=== PATIENT | male | born 1970 | race Caucasian/White ===

== ENCOUNTER → 2016-07-21 | Outpatient (CLI) | payer BC, OTHER ==
[2016-07-21 15:33] LABS: ANION GAP 8 MEQ/L (8-16); BLOOD UREA NITROGEN 22 MG/DL (7-18); CALCIUM LEVEL 9.1 MG/DL (8.5-10.1); CARBON DIOXIDE LEVEL 29 MEQ/L (21-32); CHLORIDE LEVEL 103 MEQ/L (98-107); CREATININE FOR GFR 1.12 MG/DL (0.70-1.30); GLOMERULAR FILTRATION RATE > 60.0 (>60); GLUCOSE, FASTING 139 MG/DL (70-105); POTASSIUM SERUM 4.3 MEQ/L (3.5-5.1); SODIUM LEVEL 140 MEQ/L (136-145)
== END ==
LOC: M SMT 12:04
PROVIDERS: ATTEND Physician Assistant
DX: Z00.00 Encounter for general adult medical examination without abnormal findings (principal); E78.2 Mixed hyperlipidemia; Z80.42 Family history of malignant neoplasm of prostate
CPT/HCPCS: 36415; 80048; G0103

== ENCOUNTER → 2017-02-03 | Outpatient (CLI) | payer OTHER ==
[2017-02-05 14:15] LABS: PSA TOTAL 2.2 ng/mL (0.0-4.0)
== END ==
LOC: M SMT 14:16
PROVIDERS: ATTEND Urology
DX: R97.20 Elevated prostate specific antigen [PSA] (principal)

== ENCOUNTER → 2017-05-26 | Outpatient (CLI) | payer MEDICAID | LOC: M OUTALCOH 07:47 | DX: F10.20 Alcohol dependence, uncomplicated (principal) ==

== ENCOUNTER 2017-06-07 13:29 | Outpatient (RCR) | payer MEDICAID | END 2017-06-30 | LOC: M OUTALCOH 06-15 16:00 | DX: F10.20 Alcohol dependence, uncomplicated (principal) ==

== ENCOUNTER 2017-07-06 09:00 | Outpatient (RCR) | payer MEDICAID | END 2017-07-31 | LOC: M OUTALCOH 07-13 08:00 | DX: F10.20 Alcohol dependence, uncomplicated (principal) ==

== ENCOUNTER → 2017-08-17 | Outpatient (CLI) | payer MEDICAID ==
[2017-08-19 00:08] LABS: PSA TOTAL 1.9 ng/mL (0.0-4.0)
== END ==
LOC: M SMT 11:08
DX: R97.20 Elevated prostate specific antigen [PSA] (principal)
CPT/HCPCS: 84154

== ENCOUNTER → 2018-09-08 | Outpatient (CLI) | payer MEDICAID, OTHER | LOC: M SMT 13:35 | PROVIDERS: ATTEND Urology | DX: R97.20 Elevated prostate specific antigen [PSA] (principal) ==

== ENCOUNTER → 2019-04-05 | Outpatient (CLI) | payer MEDICAID ==
[~2019-04-05] MED LIST: CELE20TA PO; DULO1CAP6 PO; TRAZ1TAB14 PO
--- NOTE | 2019-04-05 16:49 | REP ---
Five views right knee: 04/05/2019. Indication: Right knee pain following injury. Comparison: None. Findings: There is a minimally displaced fracture through the most proximal aspect of the right fibula. There is an associated joint effusion. No additional fractures are present. Impression: Minimally displaced proximal right fibular fracture. Electronically Signed by Toño Randall DO 04/05/2019 04:41 P
== END ==
LOC: M WUC 16:24
PROVIDERS: ATTEND Physician Assistant
DX: S82.451A Displaced comminuted fracture of shaft of right fibula, initial encounter for closed fracture (principal); X58.XXXA Exposure to other specified factors, initial encounter